=== PATIENT | male | born 1980 | race Caucasian/White ===

== ENCOUNTER 2017-08-09 17:09 | Emergency (ER) | payer OTHER ==
[~2017-08-09] VITALS: Ht 188 cm; Wt 83.9 kg
[2017-08-09 17:13] VITALS: BP 126/81
--- NOTE | 2017-08-09 17:27 | ED HAND/WRIST INJURY COMPLAINT ---
See Addendum History of Present Illness General Chief Complaint: Laceration Procedure Stated Complaint: FINGER LAC Source: patient Exam Limitations: no limitations Vital Signs & Intake/Output Vital Signs & Intake/Output Vital Signs Date Time Temp Pulse Resp B/P B/P Pulse O2 O2 Flow FiO2 Mean Ox Delivery Rate 08/09 1713 98.2 65 18 126/81 99 Room Air Room Air Allergies Coded Allergies: No Known Allergies (08/12/17) Triage Note: 36 YEAR OLD MALE REPORTS LAC TO RIGHT FIFTH FINGER AFTER USING MANDOLINE. PT WAS SEEN AT WALK IN CLINIC BUT REPORTS HE WAS SENT HERE BECAUSE THE NAIL AND TIP OF THE FINGER IS COMPROMISED. DRESSING IN PLACE AT THIS TIME AND NO BLEEDING APPEARS TO BE CONTROLLED. PT TAKEN DIRECTLY TO ROOM 6. PT IS NOT UP TO DATE ON TETNUS. Triage Nurses Notes Reviewed? yes Occurred: just prior to arrival Duration: hour(s): (1) Timing: no prior history Injury Environment: home Severity: moderate Severity Numbers: 5 Modifying Factors: Improves With: immobilization. Worsens With: movement. HPI: Patient is a 36-year-old male presenting to the emergency department with chief complaint of right fifth finger pain. He was using a mandolin slicer when he accidentally cut his finger prior to arrival. Patient reports that he was seen at a walk-in clinic for this addendum to the emergency department for evaluation. No fevers or chills nausea vomiting chest pain or shortness of breath. Unsure of tetanus immunization. Denies numbness or tingling. Past History Travel History Traveled to [place] past 21 day No Medical History Any Pertinent Medical History? see below for history Surgical History Surgical History: non-contributory Psychosocial History What is your primary language Luxembourgish Tobacco Use: Never used Family History Hx Contributory? No Review of Systems Review of Systems Constitutional: Reports: no symptoms. Comments Review of systems: See HPI, All other systems negative. Constitutional, no chills fever or weight loss HEENT: No visual changes no sore throat no congestion Cardiovascular: No chest pain ,palpitation Skin, no jaundice no rashes Respiratory: No dyspnea cough sputum or hemoptysis GI: No nausea no vomiting Muscle skeletal: no back pain, no neck pain, Neurologic: No numbness no confusion Psych: No stress anxiety Immunology: No splenectomy or history of AIDS Physical Exam Physical Exam General Appearance: well developed/nourished, no apparent distress, alert, awake , comfortable Hand Left: normal inspection, normal range of motion Hand Right: lacerations Comments: Well-developed well-nourished person in no acute distress HEENT: Atraumatic, normocephalic Neck: Normal inspection Back: Nontender, no CVA tenderness. Full range of motion Cardiovascular: Regular rate and rhythms no murmurs rubs or gallops, normal JVP Respiratory: No respiratory distress.breath sounds clear to auscultation bilaterally Extremity: No edema, full range of motion of right fifth finger without difficulty or pain. Radial pulses are 2+ bilaterally. Neuro: Alert oriented x3, motor sensory normal Skin: Subcutaneous laceration noted at the distal tip of the right fifth finger that extends into the nail bed, no visible bone. No surrounding erythema or edema. Bleeding controlled. Psych: Mood and affect is normal, memory and judgment is normal. Progress Differential Diagnosis: dislocation, fracture, sprain, LACERATION ABRASION Plan of Care: Orders Procedure Date/time Status XRY-FINGERS, RIGHT 08/09 1722 Active Diagnostic Imaging: Viewed by Me: Radiology Read. Discussed w/RAD: Radiology Read. Radiology Impression: PATIENT: HERNAN PRADO PRESENT AGE: 36 PATIENT ACCOUNT NO: [id number] : 81 LOCATION: [facility] ORDERING PHYSICIAN: Brenda CHIRINOS SERVICE DATE: 08/09/17-1722 EXAM TYPE: RAD - XRY-FINGERS, RIGHT EXAMINATION: XR FINGER, RIGHT CLINICAL INFORMATION: Laceration with nail involvement. COMPARISON: None TECHNIQUE: Frontal view of the hand and 3 views of the left fifth digit were obtained. FINDINGS: Bandaging overlies the fifth digit. No discrete fracture or dislocation. No metallic foreign body demonstrated. IMPRESSION: No discrete fracture demonstrated. DICTATED BY: Keith Rhoades MD DATE/TIME DICTATED:1754 [employer]OUISE DATE/TIME TRANSCRIBED:08/09/171754 CONFIDENTIAL, DO NOT COPY WITHOUT APPROPRIATE AUTHORIZATION. <Electronically signed in Other Vendor System> SIGNED BY: Keith Rhoades MD 08/09/17 180 Departure Departure Time of Disposition: 183 Disposition: HOME OR SELF CARE Condition: Stable Clinical Impression Primary Impression: Finger laceration Qualifiers: Encounter type: initial encounter Finger: little finger Damage to nail status: with damage Foreign body presence: without foreign body Laterality: right Qualified Code: S61.316A - Laceration without foreign body of right little finger with damage to nail, initial encounter Referrals: Maciej Gale MD Additional Instructions: return for a wound check in 3 days. return sooner for worsening symptoms or concerns. keep dressing on for next 24 hours. then change to regular dressing. you can also follow up with plastics/hand specialist dr. gale as well. take motrin or tylenol as directed. return for increased read, swelling, pain discharge or fevers. Departure Forms: Customer Survey General Discharge Information Procedures Laceration/Wound Repair Laceration/Wound Repair: Wound Location: upper extremity Wound's Depth, Shape: linear
--- NOTE | 2017-08-09 18:02 | RADIOLOGY REPORT ---
EXAMINATION: XR FINGER, RIGHT CLINICAL INFORMATION: Laceration with nail involvement. COMPARISON: None TECHNIQUE: Frontal view of the hand and 3 views of the left fifth digit were obtained. FINDINGS: Bandaging overlies the fifth digit. No discrete fracture or dislocation. No metallic foreign body demonstrated. IMPRESSION: No discrete fracture demonstrated.
== END 2017-08-09 18:47 ==
LOC: ERH 17:09
DX: S61.216A Laceration without foreign body of right little finger without damage to nail, initial encounter (principal); W27.4XXA Contact with kitchen utensil, initial encounter; Y93.G1 Activity, food preparation and clean up; Y92.009 Unspecified place in unspecified non-institutional (private) residence as the place of occurrence of the external cause
CPT/HCPCS: 73140-RT; 90471; 90714

== ENCOUNTER 2017-08-12 06:13 | Emergency (ER) | payer OTHER ==
--- NOTE | 2017-08-12 06:22 | ED UPPER/LOWER EXTREMITY COMPL ---
History of Present Illness General Chief Complaint: Suture Removal/Wound Recheck Stated Complaint: PT HERE FOR wound check RT PINKEY FINGER Source: patient Exam Limitations: no limitations Vital Signs & Intake/Output Vital Signs & Intake/Output . Allergies Coded Allergies: No Known Allergies (08/12/17) Triage Nurses Notes Reviewed? yes Onset: Gradual Duration: day(s): Timing: recent history Severity: mild Pain/Injury Location: Right: 5th finger. Method of Injury: incised, laceration Modifying Factors: Improves With: rest. Associated Symptoms: pain HPI: 36 yo gentleman presents for wound check of right 5th finger. He reports he cut it on a slicer 2 days ago, received sutures. He notes that his pain is well controlled. He notes no discharge, erythema. He is otherwise well. Past History Travel History Traveled to [place] past 21 day No Medical History Any Pertinent Medical History? none Tetanus Vaccine: 08/09/17 Surgical History Surgical History: non-contributory Psychosocial History What is your primary language Welsh Family History Hx Contributory? No Review of Systems Review of Systems Constitutional: Reports: no symptoms. EENTM: Reports: no symptoms. Respiratory: Reports: no symptoms. Cardiovascular: Reports: no symptoms. Gastrointestinal/Abdominal: Reports: no symptoms. Genitourinary: Reports: no symptoms. Musculoskeletal: Reports: no symptoms. Skin: Reports: no symptoms. Neurological/Psychological: Reports: no symptoms. Hematologic/Endocrine: Reports: no symptoms. Immunological: Reports: no symptoms. All Other Systems: Reviewed and Negative Physical Exam Physical Exam General Appearance: well developed/nourished, mild distress Head: atraumatic Eyes: Bilateral: normal appearance, PERRL. Ears, Nose, Throat: normal pharynx, normal ENT inspection, hearing grossly normal Neck: normal inspection, supple Cardiovascular/Respiratory: regular rate/rhythm Back: normal inspection Hand Right: 5th finger, 5th digit with laceration, sutures intact, no sign of infection. tissue healing well. Skin: intact, normal color, warm/dry Lymphatic: no anterior cervical west Progress Differential Diagnosis: laceration Plan of Care: dressing applied... pt to return in 1 week for suture removal. Departure Departure Disposition: HOME OR SELF CARE Condition: Stable Clinical Impression Primary Impression: Laceration of finger Referrals: Rosalba Quarles ND (PCP/Family) Departure Forms: Customer Survey General Discharge Information
[2017-08-12 06:38] VITALS: BP 120/72
== END 2017-08-12 06:39 ==
LOC: ERH 06:13
DX: Z48.00 Encounter for change or removal of nonsurgical wound dressing (principal)